=== PATIENT | female | born 1960 | race Caucasian/White ===

== ENCOUNTER 2016-11-02 13:06 | Inpatient (IN) | payer OTHER ==
[2016-11-02] MEDS ORDERED: ACETAMINOPHEN 500 MG TAB PO ONE (13:51)
[2016-11-02] MEDS ORDERED: ACETAMINOPHEN 500 MG TAB ONE (13:53)
[2016-11-02] MEDS ORDERED: ONDANSETRON 4 MG/2 ML VIAL IVP ONE ×2 (14:05→17:26)
[2016-11-02] MEDS ORDERED: fentaNYL 100 MCG/2 ML INJ IVP ONE (14:05)
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
[2016-11-02] MEDS ORDERED: HYDROmorphONE/DILAUDID 1 MG/ML SYR IVP ONE ×2 (14:35→16:48)
[2016-11-02] MEDS ORDERED: DIAZEPAM 10 MG/2 ML SYR IVP ONE (15:00)
[2016-11-02] MEDS ORDERED: LR 1,000 ML IV ONE (15:01)
[2016-11-02] MEDS ORDERED: DIAZEPAM 10 MG/2 ML SYR ONE (15:01)
[2016-11-02 16:23] LABS: % IMMATURE GRANULYOCYTES 0.9 % (0.0-1.1); ADD DIFF? NO; ADD MORPH? NO; ADD SCAN? NO; ATYPICAL LYMPHOCYTE FLAG 0 (0-99); FRAGMENT RBC FLAG 0 (0-99); HEMATOCRIT 40.2 % (38.0-47.0); HEMOGLOBIN 13.6 g/dL (12.6-16.3); LEFT SHIFT FLG 10 (0-99); LIPEMIA HEMOLYSIS FLAG 90 (0-99); MEAN CELL HEMOGLOBIN 30.9 pg (27.9-34.1); MEAN CELL HEMOGLOBIN CONCENTR. 33.8 g/dL (32.4-36.7); MEAN CELL VOLUME 91.4 fL (81.5-99.8); PLATELET CLUMPS FLAG 0 (0-99); PLATELET COUNT 99 10^3/uL (150-400); RED CELL DISTRIBUTION WIDTH 14.1 % (11.5-15.2)
[2016-11-02 16:27] LABS: ANION GAP 10 mEq/L (8-16); CALCIUM 9.5 mg/dL (8.5-10.4); CARBON DIOXIDE 25 mEq/l (22-31); CHLORIDE 106 mEq/L (97-110); CREATININE 0.7 mg/dL (0.6-1.0); GLOMERULAR FILTRATION RATE > 60; GLUCOSE 106 mg/dL (70-100); POTASSIUM 4.2 mEq/L (3.5-5.2); SODIUM 141 mEq/L (134-144)
[2016-11-02] MEDS ORDERED: ONDANSETRON 4 MG/2 ML VIAL ONE ×2 (17:27→21:10)
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
[2016-11-02] MEDS ORDERED: DIAZEPAM 5 MG TAB PO PRN (18:02)
[2016-11-02] MEDS ORDERED: LET GEL TOPICAL 1 EA SYR TP ONE (18:05)
[2016-11-02] MEDS ORDERED: BUPIVACAINE/EPI 0.5% 30 ML SDV ONE (18:16)
[2016-11-02] MEDS ORDERED: BUPIVACAINE 0.5% 30 ML SDV ONE (18:16)
[2016-11-02] MEDS: LR 1,000 ML IV SCH (18:27)
[2016-11-02] MEDS ORDERED: PROPOFOL 200 MG/20 ML VIAL ONE ×2 (20:01)
[2016-11-02] MEDS ORDERED: fentaNYL 100 MCG/2 ML INJ ONE (20:01)
[2016-11-02] MEDS ORDERED: LIDOCAINE 2% 100 MG/5 ML SYR ONE (20:04)
[2016-11-02] MEDS ORDERED: ROCURONIUM 50 MG/5 ML VIAL ONE (20:04)
[2016-11-02] MEDS ORDERED: ceFAZolin 2 GM/DEXTROSE 100 ML IV ONE (20:21)
[2016-11-02] MEDS ORDERED: SCOPOLAMINE HYDROBROMIDE 1.5 MG PATCH TD ONE (20:28)
[2016-11-02] MEDS ORDERED: CEFAZOLIN 2 GM/DEXTROSE/100 ML BAG IV ONE (20:29)
[2016-11-02] MEDS ORDERED: MIDAZOLAM 2 MG/2 ML VIAL ONE (20:29)
[2016-11-02] MEDS ORDERED: PROPOFOL/EMULSION 500 MG/50 ML BOTTLE IV ONE ×3 (20:36→23:09)
[2016-11-02] MEDS ORDERED: DEXAMETHASONE 4 MG/ML VIAL ONE (21:10)
[2016-11-02] MEDS ORDERED: HYDROmorphONE/DILAUDID 2 MG/ML INJ ONE (21:57)
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
--- NOTE | 2016-11-02 23:57 | POSTOPPROG ---
Post Op Note Date of Operation: 11/02/16 Surgeon: Pilo Barraza Custom Seamstress: none Anesthesia: GET(General Endotracheal) Pre-op Diagnosis: left hip fx, left olecranon fx Post-op Diagnosis: same Indication: above Procedure: ORIF left hip and orif left olecranon Inf/Abcess present in the surg proc area at time of surgery?: No EBL: 50-100
[2016-11-03] MEDS: BACITRACIN ZINC 14.2 GM OINTTUBE TP SCH ×3 (01:11→20:20)
[2016-11-03 02:34] LABS: % IMMATURE GRANULYOCYTES 0.4 % (0.0-1.1); ABSOLUTE IMMATURE GRANULOCYTES 0.05 10^3/uL (0.00-0.10); ADD DIFF? NO; ADD MORPH? NO; ADD SCAN? NO; ATYPICAL LYMPHOCYTE FLAG 0 (0-99); FRAGMENT RBC FLAG 0 (0-99); HEMATOCRIT 35.9 % (38.0-47.0); HEMOGLOBIN 12.1 g/dL (12.6-16.3); LEFT SHIFT FLG 0 (0-99); LIPEMIA HEMOLYSIS FLAG 80 (0-99); MEAN CELL HEMOGLOBIN 30.8 pg (27.9-34.1); MEAN CELL HEMOGLOBIN CONCENTR. 33.7 g/dL (32.4-36.7); MEAN CELL VOLUME 91.3 fL (81.5-99.8); MEAN PLATELET VOLUME 11.2 fL (8.7-11.7); PLATELET CLUMPS FLAG 0 (0-99); PLATELET COUNT 69 10^3/uL (150-400); RED BLOOD CELL COUNT 3.93 10^6/uL (4.18-5.33); RED CELL DISTRIBUTION WIDTH 14.1 % (11.5-15.2)
[2016-11-03] MEDS: ONDANSETRON 4 MG/2 ML VIAL IVP PRN ×2 (07:13→15:27)
[2016-11-03] MEDS: LR 1,000 ML IV SCH (09:22)
[2016-11-03 09:32] LABS: % IMMATURE GRANULYOCYTES 0.4 % (0.0-1.1); ABSOLUTE IMMATURE GRANULOCYTES 0.05 10^3/uL (0.00-0.10); ADD DIFF? NO; ADD MORPH? NO; ADD SCAN? NO; ATYPICAL LYMPHOCYTE FLAG 0 (0-99); FRAGMENT RBC FLAG 0 (0-99); HEMATOCRIT 34.1 % (38.0-47.0); HEMOGLOBIN 11.3 g/dL (12.6-16.3); LEFT SHIFT FLG 0 (0-99); LIPEMIA HEMOLYSIS FLAG 80 (0-99); MEAN CELL HEMOGLOBIN 30.2 pg (27.9-34.1); MEAN CELL HEMOGLOBIN CONCENTR. 33.1 g/dL (32.4-36.7); MEAN CELL VOLUME 91.2 fL (81.5-99.8); MEAN PLATELET VOLUME 11.9 fL (8.7-11.7); PLATELET CLUMPS FLAG 0 (0-99); PLATELET COUNT 71 10^3/uL (150-400); RED BLOOD CELL COUNT 3.74 10^6/uL (4.18-5.33); RED CELL DISTRIBUTION WIDTH 14.3 % (11.5-15.2)
--- NOTE | 2016-11-03 09:56 | SOAPPROG ---
SOAP Progress Note Assessment/Plan: Assessment: ORIF left hip orif left olecranon Plan: 1 lbs wt limit left upper extremity wbat LLE rom as tolerated need anticoagulation for DVT prophalaxsis 11/03/16 09:54 Subjective: pain in hip and elbow Objective: Vital Signs Temp Pulse Resp BP Pulse Ox 36.8 C 71 14 163/60 H 98 11/03/16 08:01 11/03/16 08:01 11/03/16 08:01 11/03/16 08:01 11/03/16 08:01 Laboratory Results 11/03/16 09:25 11/02/16 11/03/16 11/04/16 05:59 05:59 05:59 Intake Total 2000 Output Total 600 Balance 1400 left hand moving fingers nvi moving LLE well ICD10 Worksheet Patient Problems: Problems Problem Status Onset Closed left hip fracture Acute Left elbow fracture Acute
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
[2016-11-03] MEDS ORDERED: oxyCODONE IR 5 MG TAB PO PRN ×2 (10:37)
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
[2016-11-03] MEDS: ACETAMINOPHEN 325 MG TAB PO PRN (15:25)
[2016-11-03 16:42] LABS: % IMMATURE GRANULYOCYTES 0.3 % (0.0-1.1); ABSOLUTE IMMATURE GRANULOCYTES 0.04 10^3/uL (0.00-0.10); ADD DIFF? NO; ADD MORPH? NO; ADD SCAN? NO; ATYPICAL LYMPHOCYTE FLAG 0 (0-99); FRAGMENT RBC FLAG 0 (0-99); HEMATOCRIT 32.8 % (38.0-47.0); HEMOGLOBIN 10.9 g/dL (12.6-16.3); LEFT SHIFT FLG 0 (0-99); LIPEMIA HEMOLYSIS FLAG 80 (0-99); MEAN CELL HEMOGLOBIN 30.3 pg (27.9-34.1); MEAN CELL HEMOGLOBIN CONCENTR. 33.2 g/dL (32.4-36.7); MEAN CELL VOLUME 91.1 fL (81.5-99.8); MEAN PLATELET VOLUME 12.9 fL (8.7-11.7); PLATELET CLUMPS FLAG 0 (0-99); PLATELET COUNT 78 10^3/uL (150-400); RED CELL DISTRIBUTION WIDTH 14.4 % (11.5-15.2)
[2016-11-04] MEDS: ACETAMINOPHEN 325 MG TAB PO PRN ×2 (04:44→11:51)
[2016-11-04] MEDS: ONDANSETRON 4 MG/2 ML VIAL IVP PRN (04:45)
[2016-11-04 08:05] VITALS: BP 127/74; PULSE 71; RESP 16; TEMP 98.2; O2SAT 93
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
[2016-11-04] MEDS ORDERED: traMADol 50 MG TAB PO PRN (08:59)
[2016-11-04] MEDS ORDERED: HYDROmorphONE/DILAUDID 2 MG TAB PO PRN (09:00)
[2016-11-04] MEDS ORDERED: ONDANSETRON DISINTEGRATING 4 MG TAB PO PRN (09:00)
[2016-11-04] MEDS: BACITRACIN ZINC 14.2 GM OINTTUBE TP SCH (10:00)
--- NOTE | 2016-11-04 12:51 | SOAPPROG ---
SOAP Progress Note Assessment/Plan: Assessment: ORIF left hip orif left olecranon Plan: 1 lbs wt limit left upper extremity wbat LLE rom as tolerated may d/c home given ITP would recommend mechanical DVT prophalxsis only 11/03/16 09:54 11/04/16 12:50 Subjective: pain improving Objective: Vital Signs Temp Pulse Resp BP Pulse Ox 36.8 C 71 16 127/74 H 93 11/04/16 08:00 11/04/16 08:00 11/04/16 08:00 11/04/16 08:00 11/04/16 08:00 11/03/16 11/04/16 11/05/16 05:59 05:59 05:59 Output Total 200 Balance -200 dressing and splint dry ICD10 Worksheet Patient Problems: Problems Problem Status Onset Closed left hip fracture Acute Left elbow fracture Acute
--- NOTE | 2016-11-04 14:32 | PDIAF ---
- Diagnosis Diagnosis: L hip fx, L olecranon fx Code Status: Full Code - Medication Management Discharge Medications: Medications to Continue on Transfer Ondansetron Odt [Zofran Odt 4 mg (*)] 4 mg PO Q6HRS PRN #30 tab 11/04/16 [Last Taken Unknown] traMADol [Ultram 50 mg (*)] 50 mg PO Q6HRS PRN #30 tab 11/04/16 [Last Taken Unknown] Database Analyst Antibiotics: n Discharge Medications: Refer to the Discharge Home Medication list for PRN reason. - Orders Services needed: Physical Therapy, Occupational Therapy Home Care Face to Face: y Isolation Type: N Oxygen: N Diet Recommendation: no restrictions on diet Diet Texture: Regular Texture Diet Activity/Weight Bearing Restrictions: wbat LLE, 1lb limit LUE - Follow Up Care Current Providers and Referrals: Man Mccullough MD [Primary Care Provider] - As per Instructions Rekha Shelton MD [Medical Doctor] - Pilo Barraza MD [Medical Doctor] -
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
== END 2016-11-04 15:15 | disposition home health service (06) | DRG 481 ==
LOC: F3N 18:16 → OBSVTOIN 11-04 08:00
PROVIDERS: ADMIT Surgery; ATTEND Surgery
PROC: 0QS704Z Reposition Left Upper Femur with Internal Fixation Device, Open Approach (ICD-10-PCS; principal; 2016-11-04)
PROC: 0PSL04Z Reposition Left Ulna with Internal Fixation Device, Open Approach (ICD-10-PCS; principal; 2016-11-04)
DX: S72.002A Fracture of unspecified part of neck of left femur, initial encounter for closed fracture (principal); S52.022A Displaced fracture of olecranon process without intraarticular extension of left ulna, initial encounter for closed fracture; V18.0XXA Pedal cycle driver injured in noncollision transport accident in nontraffic accident, initial encounter; Y92.85 Railroad track as the place of occurrence of the external cause; Y93.55 Activity, bike riding; D69.3 Immune thrombocytopenic purpura; Z85.3 Personal history of malignant neoplasm of breast
CPT/HCPCS: 92523-GN; 96374; 97116-GP; 97161-GP; 97165-GO; 97530-GP; 97535-GO; C1713; C1769; G0378; J0690; J1100; J1170; J2001; J2250; J2405; J2704; J3010